=== PATIENT | male | born 1975 | race Two or more races ===

== ENCOUNTER → 2016-12-12 14:04 | Outpatient (CLI) | payer MEDICAID ==
[2016-02-11 13:38] VITALS: BMI 43.0
[~2016-12-12 14:04] MED LIST: ANCEF 1 GM/D5W 51 G1 IV; ASPIRIN EC81 M1 PO; FLORAJEN3 CAPS460 MG PO; HUMALOG 30100 UNITS/ SC; HYDROCODONE-APA1 TAB PO; INVOKAMET PO; LANTUS INSULIN10 ML SC; NEURONTIN 300300 MG PO; NORVASC10 MG PO
== END | disposition home or self-care (01) ==
LOC: D.MRI 14:04
DX: M54.16 Radiculopathy, lumbar region (principal)

== ENCOUNTER 2017-08-18 13:12 | Emergency (ER) | payer MEDICAID ==
[2016-02-11 13:38] VITALS: BMI 43.0
== END 2017-08-18 14:52 | disposition home or self-care (01) ==
LOC: D.ER 13:12
DX: M77.32 Calcaneal spur, left foot (principal); E11.9 Type 2 diabetes mellitus without complications; Z79.4 Long term (current) use of insulin; F17.200 Nicotine dependence, unspecified, uncomplicated

== ENCOUNTER → 2017-12-25 12:11 | Outpatient (CLI) | payer MEDICAID ==
[~2017-12-25] VITALS: Ht 182.9 cm; Wt 152.9 kg
[2017-12-25 13:46] VITALS: Ht 182.9 cm; Wt 152.9 kg
== END | disposition home or self-care (01) ==
LOC: D.FANS 12:11
DX: E11.65 Type 2 diabetes mellitus with hyperglycemia (principal)